=== PATIENT | female | born 1975 | race Hispanic/Latino ===

== ENCOUNTER 2016-11-04 13:56 | Emergency (ER) | payer MEDICARE, MEDICAID ==
[2016-11-04 14:15] VITALS: TEMP 98; O2SAT 98
[2016-11-04] MEDS ORDERED: Sodium Chloride 0.9% 1,000 ML IV ONE (14:25)
--- NOTE | 2016-11-04 14:29 | C.PDOC ---
History Of Present Illness 41 y/o female, hx kidney stones, presents to emergency department with complaint of left flank pain that she states feels like her kidney stone. Denies fever, chills, nausea, vomiting, hematuria, or other comlpaints. Time Seen by Provider: 11/04/16 14:17 Chief Complaint (Nursing): Back Pain History Per: Patient History/Exam Limitations: no limitations Onset/Duration Of Symptoms: Days Current Symptoms Are (Timing): Still Present Quality Of Discomfort: "Pain" Previous Symptoms: None Recent travel outside of the [place]: No Past Medical History Reviewed: Historical Data, Nursing Documentation, Vital Signs Vital Signs: Last Vital Signs Temp 98 F 11/04/16 14:12 Pulse 104 H 11/04/16 14:12 Resp 20 11/04/16 14:12 BP 137/88 11/04/16 14:12 Pulse Ox 98 11/04/16 16:50 - Medical History PMH: Anxiety, Dementia, HTN Family History: States: Unknown Family Hx - Social History Hx Tobacco Use: No Hx Alcohol Use: No Hx Substance Use: No - Immunization History Hx Tetanus Toxoid Vaccination: No Hx Influenza Vaccination: Yes Hx Pneumococcal Vaccination: No Review Of Systems Except As Marked, All Systems Reviewed And Found Negative. Constitutional: Negative for: Fever, Chills Respiratory: Negative for: Shortness of Breath Gastrointestinal: Positive for: Other (left flank pain ). Negative for: Nausea , Vomiting, Diarrhea Genitourinary: Negative for: Dysuria, Hematuria Skin: Negative for: Rash Physical Exam - Physical Exam Appears: Non-toxic, No Acute Distress Skin: Normal Color, Warm, Dry Head: Atraumatic, Normacephalic Chest: Symmetrical Cardiovascular: Rhythm Regular Respiratory: Normal Breath Sounds, No Rales, No Rhonchi, No Wheezing Gastrointestinal/Abdominal: Soft, No Guarding, No Rebound Back: CVA Tenderness (mild, left flank), No Vertebral Tenderness, No Paraspinal Tenderness Extremity: Normal ROM, Capillary Refill (< 2 sec. ) Extremity: Bilateral: Normal Color And Temperature Neurological/Psych: Oriented x3, Normal Speech, Normal Cognition ED Course And Treatment - Laboratory Results Result Diagrams: 11/04/16 14:45 11/04/16 14:45 O2 Sat by Pulse Oximetry: 98 (RA) Pulse Ox Interpretation: Normal - CT Scan/US CT a/p Other Rad Studies (CT/US): Radiology Report Reviewed CT/US Interpretation: IMPRESSION: Small approximately 3.5 mm obstructing left UVJ calculus with mild to moderate left-sided hydronephrosis. 1.9 mm calculus lower pole left kidney. Progress Note: Labs and IVFs. Medical Decision Making Medical Decision Making: r/o kidney stone- labs imaging pending 450: pt specifically requesting dr blancas as urologist, as son is patient. noted leukocytosis. suspected inflammtory vs less likely infection (pt with neg ua). case discussed with dr blancas. requests ouptt f/u erendira. pt given copy of ct results. advsied to return with worsening symptoms or concerns. pain improved. Disposition - Disposition Disposition: HOME/ ROUTINE Disposition Time: 16:51 Condition: STABLE Additional Instructions: please follow up with dr yonny krishna. he is expecting to see you. return to er with worsening symptoms or concerns he can be reached at [phone] Prescriptions: Cefpodoxime [Vantin] 100 mg PO BID #14 tab Ibuprofen [Motrin Tab] 600 mg PO Q8 PRN #20 tab PRN Reason: Pain, Mild (1-3) oxyCODONE/Acetaminophen [Percocet 5/325 mg Tab] 1 ea PO Q6 PRN #10 tab PRN Reason: Pain, Severe (8-10) Tamsulosin [Flomax] 0.4 mg PO DAILY #10 cap Instructions: Kidney Stones (ED) - Clinical Impression Clinical Impression: Kidney stone - Scribe Statement The provider has reviewed the documentation as recorded by the Arben Ramirez All medical record entries made by the Arben were at my direction and personally dictated by me. I have reviewed the chart and agree that the record accurately reflects my personal performance of the history, physical exam, medical decision making, and the department course for this patient. I have also personally directed, reviewed, and agree with the discharge instructions and disposition.
[2016-11-04 14:50] LABS: BASO % 0.2 % (0.0-2.0); EOS # 0.1 K/uL (0.0-0.7); EOS % 0.5 % (0.0-4.0); HEMATOCRIT 42.3 % (34.0-47.0); LYMPH # 2.5 K/uL (1.0-4.3); LYMPH % 15.1 % (20.0-40.0); MEAN CELL VOLUME 84.1 fL (81.0-99.0); MEAN CORPUSCULAR HEMOGLOBIN 29.1 pg (27.0-31.0); MEAN CORPUSCULAR HGB CONC 34.6 g/dL (33.0-37.0); MEAN PLATELET VOLUME 6.7 fL (7.2-11.7); MONO # 1.1 K/uL (0.0-0.8); MONO % 6.3 % (0.0-10.0); NRBC % 0.1 % (0.0-2.0); RED CELL DISTRIBUTION WIDTH 13.5 % (11.5-14.5); WHITE BLOOD COUNT 16.8 K/uL (4.8-10.8)
[2016-11-04] MEDS ORDERED: Sodium Chloride 0.9% 1,000 ML ONE (14:53)
[2016-11-04 15:00] LABS: RBC URINE 13 /hpf (0-3); URINE BILIRUBIN NEGATIVE (NEGATIVE); URINE BLOOD 2+ (NEGATIVE); URINE COLOR Straw (YELLOW); URINE GLUCOSE (UA) NORMAL (Normal); URINE KETONE NEGATIVE (NEGATIVE); URINE LEUKOCYTE ESTERASE NEG Leu/uL (Negative); URINE PROTEIN NEGATIVE (NEGATIVE); URINE UROBILINOGEN NORMAL mg/dL (0.2-1.0); WBC URINE 1 /hpf (0-5)
[2016-11-04 15:05] LABS: CHLORIDE 97 mmol/L (98-107); POTASSIUM 3.2 mmol/L (3.6-5.2); SODIUM 136 mmol/L (132-148)
[2016-11-04 15:07] LABS: BILIRUBIN,TOTAL 0.7 mg/dL (0.2-1.3); GFR AFRICAN-AMERICAN > 60
[2016-11-04 15:08] LABS: ALKALINE PHOSPHATASE 58 U/L (38-126); ALT/SGPT 38 U/L (9-52); AST/SGOT 29 U/L (14-36); BLOOD UREA NITROGEN 16 mg/dL (7-17); CALCIUM 8.9 mg/dl (8.6-10.4); CARBON DIOXIDE 24 mmol/L (22-30); GLUCOSE,RANDOM 89 mg/dL (65-105); TOTAL PROTEIN 7.7 g/dL (6.3-8.3)
[2016-11-04] MEDS ORDERED: Potassium Chloride 20 mEq ER Tab PO STA (15:14)
[2016-11-04] MEDS ORDERED: Potassium Chloride 20 mEq ER Tab PO ONE (15:38)
--- NOTE | 2016-11-04 16:39 | CT ---
PROCEDURE: CT abdomen pelvis 11/04/2016. HISTORY: Left t flank pain COMPARISON: Comparison made with prior study dated 10/09/2014 TECHNIQUE: Contiguous axial images of the abdomen and pelvis pelvis performed without oral or intravenous contrast. . Coronal and Sagittal reformats generated. Radiation dose: Total exam DLP = 208.43 mGy-cm. This CT exam was performed using one or more of the following dose reduction techniques: Automated exposure control, adjustment of the mA and/or kV according to patient size, and/or use of iterative reconstruction technique. FINDINGS: LOWER THORAX: The lung bases clear without infiltrate effusion or basilar pneumothorax. Heart size within range of normal. No significant pericardial effusion. LIVER: Liver exhibits normal size measuring approximately 16.7 cm in CC dimension. No obvious hepatic mass collection or calcification. No gross intrahepatic biliary ductal dilatation. GALLBLADDER AND BILE DUCTS: Gallbladder is incompletely distended. No evidence of intraluminal gallbladder calculi. No significant ductal dilatation. PANCREAS: The visualized portions of the pancreas are unremarkable without mass collection calcification or significant ductal dilatation. SPLEEN: Spleen exhibits normal size and attenuation without mass collection or calcification. ADRENALS: There are no adrenal lesions. KIDNEYS AND URETERS: Small approximately 1.9 mm calcification seen in lower pole left kidney. Additionally, there is very small approximately 3.5 mm left UVJ calculus with mild to moderate left-sided hydronephrosis. The kidneys exhibit relatively symmetric size. Duplicated right renal collecting system. No right-sided hydronephrosis. BLADDER: Urinary bladder is physiologically distended. No evidence of intraluminal urinary bladder calculi. REPRODUCTIVE: Uterus and adnexal structures unremarkable. APPENDIX: Normal-appearing air and debris filled appendix best seen on axial image number [id number] and coronal image [id number]. BOWEL: Evaluation of bowel is somewhat limited due to the lack of oral contrast material. The stomach is incompletely distended presumably accounts for thick-walled appearance. Radiopaque luminal contents likely food related debris. . Visualized loops of small bowel exhibit normal contour and caliber. No evidence acute mechanical small bowel obstruction. Moderate amount stool seen within the cecum and ascending colon suggesting mild fecal retention. . No definitive radiographic evidence of abnormal mural wall thickening. PERITONEUM: No gross free intraperitoneal air. No free or loculated fluid collections. LYMPH NODES: Unremarkable. No enlarged lymph nodes. VASCULATURE: Unremarkable. No aortic aneurysm. BONES: Osseous structures appear intact. OTHER FINDINGS: None. IMPRESSION: Small approximately 3.5 mm obstructing left UVJ calculus with mild to moderate left-sided hydronephrosis. 1.9 mm calculus lower pole left kidney.
[2016-11-04 17:12] VITALS: BP 120/78; PULSE 85; RESP 16
== END 2016-11-04 17:12 | disposition home or self-care (01) ==
LOC: C.ER 13:56
DX: N13.2 Hydronephrosis with renal and ureteral calculous obstruction (principal)
CPT/HCPCS: 74176; 80053; 81001; 83690; 84703; 85025; 85610; 85730; 96374; 99283; J1885; J7040

== ENCOUNTER 2018-01-25 13:08 | Emergency (ER) | payer MEDICARE, MEDICAID ==
[2018-01-25 13:13] VITALS: BMI 18.1
[2018-01-25 13:16] VITALS: BP 127/85; PULSE 82; RESP 18; TEMP 98.3; O2SAT 97
--- NOTE | 2018-01-25 14:21 | C.PDOC ---
History Of Present Illness 42 year old female presents to the ED for evaluation of bilateral ear pain and throat pain which has been ongoing for 8 days. Patient was evaluated by her PMD and started on Amoxicillin, which she has taken for 5 days. She reports some improvement, but states her symptoms have not resolved and presents to the ED for further evaluation. She denies fever, chills. Time Seen by Provider: 01/25/18 13:34 Chief Complaint (Nursing): ENT Problem History Per: Patient History/Exam Limitations: None Onset/Duration Of Symptoms: Days (8) Current Symptoms Are (Timing): Still Present Quality (Ear): Pain W/Touch Past Medical History Reviewed: Historical Data, Nursing Documentation, Vital Signs Vital Signs: Last Vital Signs Temp 98.3 F 01/25/18 13:13 Pulse 82 01/25/18 13:13 Resp 18 01/25/18 13:13 BP 127/85 01/25/18 13:13 Pulse Ox 97 01/25/18 18:51 - Medical History PMH: Anxiety, Dementia, HTN Surgical History: No Surg Hx Family History: States: Unknown Family Hx - Social History Hx Tobacco Use: No Hx Alcohol Use: No Hx Substance Use: No - Immunization History Hx Tetanus Toxoid Vaccination: No Hx Influenza Vaccination: Yes Hx Pneumococcal Vaccination: No Review Of Systems Constitutional: Negative for: Fever, Chills ENT: Positive for: Ear Pain (bilateral ), Throat Pain Physical Exam - Physical Exam Appears: Non-toxic, No Acute Distress Skin: Normal Color, Warm, Dry Head: Atraumatic, Normacephalic Eye(s): bilateral: Normal Inspection Ear(s): Bilateral: Normal Nose: Normal, No Discharge Oral Mucosa: Moist Throat: Normal, No Erythema, No Exudate Neck: Supple Chest: Symmetrical, No Deformity, No Tenderness Cardiovascular: Rhythm Regular, No Murmur Respiratory: Normal Breath Sounds, No Rales, No Rhonchi, No Wheezing Extremity: Normal ROM, Capillary Refill (less than 2 seconds ) Neurological/Psych: Oriented x3, Normal Speech, Normal Cognition ED Course And Treatment O2 Sat by Pulse Oximetry: 97 (on RA) Pulse Ox Interpretation: Normal Medical Decision Making Medical Decision Making: Impression: 42 year old female with bilateral ear pain and throat pain Progress: On re-examination, patient is resting comfortably, showing no signs of distress and is stable for discharge. Patient is advised to finish the antibiotic course. Advised to follow up with her PMD/ENT for further evaluation if her symptoms persist. Disposition Counseled Patient/Family Regarding: Diagnosis, Need For Followup - Disposition Referrals: Ra Henderson MD [Staff Provider] - Iram Johnson MD [Staff Provider] - Disposition: HOME/ ROUTINE Disposition Time: 14:36 Condition: GOOD Additional Instructions: Please finish taking your antibiotics and use ear drops. Follow up with Dr Johnson and Dr Henderson. Tylenol or Motrin for pain. 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 - Scribe Statement The provider has reviewed the documentation as recorded by the Scribe (Yuly Pagan) All medical record entries made by the Scribe were at my direction and personally dictated by me. I have reviewed the chart and agree that the record accurately reflects my personal performance of the history, physical exam, medical decision making, and the department course for this patient. I have also personally directed, reviewed, and agree with the discharge instructions and disposition.
== END 2018-01-25 14:50 | disposition home or self-care (01) ==
LOC: C.ER 13:08
DX: H92.03 Otalgia, bilateral (principal)

== ENCOUNTER 2018-09-14 12:41 | Emergency (ER) | payer MEDICARE, MEDICAID ==
[2018-09-14 12:41] VITALS: BMI 18.1
[2018-09-14 13:30] VITALS: BP 141/87; PULSE 80; RESP 18; TEMP 98.2; O2SAT 96
[2018-09-14 14:01] LABS: BASO # 0.1 K/uL (0.0-0.2); BASO % 0.7 % (0.0-2.0); EOS # 0.1 K/uL (0.0-0.7); EOS % 1.2 % (0.0-4.0); LYMPH % 26.7 % (20.0-40.0); MEAN CELL VOLUME 85.5 fL (81.0-99.0); MEAN CORPUSCULAR HEMOGLOBIN 30.1 pg (27.0-31.0); MEAN CORPUSCULAR HGB CONC 35.2 g/dL (33.0-37.0); MEAN PLATELET VOLUME 6.6 fL (7.2-11.7); MONO # 0.8 K/uL (0.0-0.8); MONO % 6.8 % (0.0-10.0); NEUT # 7.3 K/uL (1.8-7.0); NEUT % 64.6 % (50.0-75.0); RED CELL DISTRIBUTION WIDTH 13.7 % (11.5-14.5); WHITE BLOOD COUNT 11.2 K/uL (4.8-10.8)
--- NOTE | 2018-09-14 14:10 | C.PDOC ---
History Of Present Illness 43 year old female with PMHx of dermatomyositis (taking Prednisone daily and intermittent infusions of Methotrexate) presents to the ED complaining of pain to left lateral chest wall since for 5 days. Describes pain as an intermittent discomfort that has become progressively worse. Pain is not dull or sharp and it does not hurt to move. Pain feels more on the skin. Denies any cough, shortness of breath, palpitations, nausea, vomiting, abdominal pain, headache, dizziness, or any other symptoms. Patient was seen by PMD Dr. Johnson and diagnosed with shingles. She has not yet developed a rash but was given a prescription for Valt ann that she has not yet started. Dr. Johnson also ordered a CXR and compared with the one from July 2017, patient has unchanged left midlung calcifications. Time Seen by Provider: 09/14/18 13:20 Chief Complaint (Nursing): Chest Pain History Per: Patient History/Exam Limitations: no limitations Onset/Duration Of Symptoms: Days Current Symptoms Are (Timing): Still Present Quality: Other (discomfort ) Associated Symptoms: denies: Nausea, Dyspnea, Diaphoresis Exacerbating Factors: None Additional History Per: Prior Records Past Medical History Reviewed: Historical Data, Nursing Documentation, Vital Signs Vital Signs: Last Vital Signs Temp 98.2 F 09/14/18 13:40 Pulse 80 09/14/18 13:40 Resp 18 09/14/18 13:40 BP 141/87 09/14/18 13:40 Pulse Ox 96 09/14/18 13:40 - Medical History PMH: Anxiety, Dementia, HTN Surgical History: Family History: States: No Known Family Hx - Social History Hx Tobacco Use: No Hx Alcohol Use: No Hx Substance Use: No - Immunization History Hx Tetanus Toxoid Vaccination: No Hx Influenza Vaccination: Yes Hx Pneumococcal Vaccination: No Review Of Systems Constitutional: Negative for: Fever, Chills Cardiovascular: Positive for: Chest Pain. Negative for: Palpitations, Paroxysmal Noc. Dyspnea, Light Headedness Respiratory: Negative for: Cough, Shortness of Breath Gastrointestinal: Negative for: Nausea, Vomiting, Abdominal Pain, Diarrhea Musculoskeletal: Negative for: Neck Pain, Back Pain Neurological: Negative for: Headache Physical Exam - Physical Exam Appears: Non-toxic, No Acute Distress Skin: Warm, Dry, No Rash Head: Normacephalic Eye(s): bilateral: EOMI Neck: Trachea Midline, Supple Chest: Symmetrical, Tenderness (left chest wall in midaxillary line ), No Other (point tenderness ) Cardiovascular: Rhythm Regular Respiratory: Normal Breath Sounds, No Rales, No Rhonchi, No Wheezing Gastrointestinal/Abdominal: Soft, No Tenderness, No Guarding, No Rebound Extremity: Bilateral: No Pedal Edema, Normal Color And Temperature, Normal ROM Neurological/Psych: Oriented x3, Normal Speech Gait: Steady ED Course And Treatment - Laboratory Results Result Diagrams: 09/14/18 13:56 09/14/18 13:56 Lab Interpretation: No Acute Changes (Total CK 147, WBC 11.2 with normal diff) O2 Sat by Pulse Oximetry: 96 (RA) Pulse Ox Interpretation: Normal Medical Decision Making Medical Decision Making: Plan - UA - Bloodwork Disposition Counseled Patient/Family Regarding: Studies Performed, Diagnosis, Need For Followup - Disposition Referrals: Iram Johnson MD [Staff Provider] - Disposition: HOME/ ROUTINE Disposition Time: 14:45 Condition: STABLE Additional Instructions: Be sure to start the Valtrex if a rash develops. Instructions: Chest Pain That Is Not Caused by the Heart (DC) Forms: [facility] (Italian) - Clinical Impression Clinical Impression: Left-sided chest wall pain - Scribe Statement The provider has reviewed the documentation as recorded by the Scribe Juanita Kimble All medical record entries made by the Scribe were at my direction and personally dictated by me. I have reviewed the chart and agree that the record accurately reflects my personal performance of the history, physical exam, medical decision making, and the department course for this patient. I have also personally directed, reviewed, and agree with the discharge instructions and disposition.
[2018-09-14 14:11] LABS: ALB/GLOB RATIO 1.5 (1.0-2.1); ALBUMIN 4.4 g/dL (3.5-5.0); ALT/SGPT 28 U/L (9-52); AST/SGOT 29 U/L (14-36); BLOOD UREA NITROGEN 16 mg/dL (7-17); CALCIUM 9.2 mg/dl (8.6-10.4); GFR NON-AFRICAN AMERICAN > 60
[2018-09-14 14:23] LABS: SQUAMOUS EPITHIAL 3 /hpf (0-5); URINE BILIRUBIN NEGATIVE (NEGATIVE); URINE BLOOD 2+ (NEGATIVE); URINE CLARITY Hazy (Clear); URINE COLOR Yellow (YELLOW); URINE GLUCOSE (UA) NORMAL (Normal); URINE LEUKOCYTE ESTERASE NEG Leu/uL (Negative); URINE PROTEIN NEGATIVE (NEGATIVE); URINE UROBILINOGEN NORMAL mg/dL (0.2-1.0)
== END 2018-09-14 15:09 | disposition home or self-care (01) ==
LOC: C.ER 12:41
DX: R07.89 Other chest pain (principal)

== ENCOUNTER 2018-09-17 23:22 | Emergency (ER) | payer MEDICARE, MEDICAID ==
[2018-09-17 23:28] VITALS: BMI 18.1
--- NOTE | 2018-09-18 00:30 | C.PDOC ---
History Of Present Illness 43 year old female presents with atraumatic left rib pain. Patient was seen by her PMD who started her on valtrex but states she had no rash, she was also seen in the ER on 09/14/18, had full cardio workup and x-ray, and was advised pain meds which she did not take. She reports having continuing pain intermittently which prompted her to come in for reevaluation. Denies fever, chills, or SOB. Time Seen by Provider: 09/17/18 23:47 Chief Complaint (Nursing): Back Pain History Per: Patient History/Exam Limitations: no limitations Onset/Duration Of Symptoms: Days Current Symptoms Are (Timing): Still Present Quality Of Discomfort: Unable To Describe Previous Symptoms: None Associated Symptoms: None Recent travel outside of the [place]: No Past Medical History Reviewed: Historical Data, Nursing Documentation, Vital Signs Vital Signs: Last Vital Signs Temp 98.4 F 09/17/18 23:37 Pulse 87 09/17/18 23:37 Resp 18 09/17/18 23:37 BP 139/99 H 09/17/18 23:37 Pulse Ox 99 09/17/18 23:37 - Medical History PMH: Anxiety, Dementia, HTN, Kidney Stones, Chronic Kidney Disease Surgical History: Family History: States: Unknown Family Hx - Social History Hx Tobacco Use: No Hx Alcohol Use: No Hx Substance Use: No - Immunization History Hx Tetanus Toxoid Vaccination: No Hx Influenza Vaccination: Yes Hx Pneumococcal Vaccination: No Review Of Systems Constitutional: Negative for: Fever, Chills Cardiovascular: Negative for: Chest Pain, Palpitations Respiratory: Negative for: Shortness of Breath Musculoskeletal: Positive for: Other (Left rib pain) Skin: Negative for: Rash Physical Exam - Physical Exam Appears: Non-toxic Skin: Normal Color, Warm, No Rash Head: Atraumatic, Normacephalic Eye(s): bilateral: Normal Inspection Chest: Symmetrical, No Tenderness, Other (No rash, erythema, mass, or crepitus) Cardiovascular: Rhythm Regular Respiratory: Normal Breath Sounds, No Accessory Muscle Use, No Stridor, No Wheezing Neurological/Psych: Oriented x3, Normal Speech ED Course And Treatment O2 Sat by Pulse Oximetry: 99 (Room air) Pulse Ox Interpretation: Normal Progress Note: Patient is resting comfortably in no acute distress, vitals are stable, will discharge home with instructions to take NSAIDs for pain, muscle relaxer given, advised to take valtrex if rash develops, and follow up with PMD. 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 - Scribe Statement The provider has reviewed the documentation as recorded by the Scribe Michael De Luna All medical record entries made by the Scribmaría were at my direction and personally dictated by me. I have reviewed the chart and agree that the record accurately reflects my personal performance of the history, physical exam, medical decision making, and the department course for this patient. I have also personally directed, reviewed, and agree with the discharge instructions and disposition.
[2018-09-18 00:40] VITALS: BP 130/80; PULSE 88; RESP 20; TEMP 98
[2018-09-18 03:11] VITALS: O2SAT 99
== END 2018-09-18 00:38 | disposition home or self-care (01) ==
LOC: C.ER 23:22
DX: M94.0 Chondrocostal junction syndrome [Tietze] (principal); I12.9 Hypertensive chronic kidney disease with stage 1 through stage 4 chronic kidney disease, or unspecified chronic kidney disease; N18.9 Chronic kidney disease, unspecified; F03.90 Unspecified dementia, unspecified severity, without behavioral disturbance, psychotic disturbance, mood disturbance, and anxiety